=== PATIENT | male | born 1965 | race African-American/Black ===

== ENCOUNTER 2018-10-18 19:31 | Emergency (ER) | payer MEDICAID ==
[~2018-10-18] VITALS: Ht 190.5 cm; Wt 115.7 kg
[2018-10-18 19:57] VITALS: Ht 190.5 cm; Wt 115.7 kg
[2018-10-18 22:19] LABS: BASOPHIL % 0.1 % (0-2); PLATELET COUNT 183 x10^3mcL (130-400); RED CELL DISTRIBUTION WIDTH 14.5 % (11.5-14.5)
[2018-10-18 22:31] LABS: CALCIUM 8.7 mg/dL (8.5-10.1); CARBON DIOXIDE 24.2 mmol/L (21-32); CREATININE SERUM 1.4 mg/dL (0.7-1.3)
[2018-10-18 22:36] LABS: ALBUMIN 3.4 g/dL (3.4-5.0); BILIRUBIN TOTAL 0.78 mg/dL (0.20-1.00)
[2018-10-18 22:43] LABS: T3 TOTAL 1.12 ng/mL
[2018-10-18 22:53] LABS: FREE T4 1.35 ng/dL (0.76-1.46); FREE THYROXINE INDEX 3.5 ug/dL (1.4-4.5)
[2018-10-18 23:33] LABS: microscopic required? YES; urine erythrocyte 3+ (NEGATIVE)
[2018-10-19 01:12] VITALS: BP 152/91
== END 2018-10-19 01:12 | disposition short-term general hospital (02) ==
LOC: ED 19:31
PROVIDERS: Specialist
DX: N13.2 Hydronephrosis with renal and ureteral calculous obstruction (principal); N39.0 Urinary tract infection, site not specified; J45.909 Unspecified asthma, uncomplicated; Z98.890 Other specified postprocedural states
CPT/HCPCS: 83880; 84439; J0696; J1885; J2405; J3010; J7030; Q0092; Q9967

== ENCOUNTER 2019-07-08 12:07 | Emergency (ER) | payer OTHER ==
[~2019-07-08] VITALS: Ht 190.5 cm; Wt 118.8 kg
[2019-07-08 12:22] VITALS: Ht 190.5 cm; Wt 118.8 kg
[2019-07-08 14:18] VITALS: BP 146/98
== END 2019-07-08 14:18 | disposition home or self-care (01) ==
LOC: ED 12:07
DX: S63.285A Dislocation of proximal interphalangeal joint of left ring finger, initial encounter (principal); Z98.890 Other specified postprocedural states; W23.0XXA Caught, crushed, jammed, or pinched between moving objects, initial encounter; Y93.89 Activity, other specified; Y92.89 Other specified places as the place of occurrence of the external cause; Y99.8 Other external cause status
CPT/HCPCS: J2001; Q0092